=== PATIENT | male | born 1980 | race African-American/Black ===

== ENCOUNTER 2017-05-24 17:07 | Emergency (ER) | payer BC ==
[2017-05-24] MEDS ORDERED: Clindamycin CAP* 150 MG PO ONE (17:30)
--- NOTE | 2017-05-24 17:35 | ED ---
Throat Pain/Nasal Congestion - HPI Summary HPI Summary: 36M presents with swelling to left jaw for 5 days. He denies any pain. He has broke tooth in the area. He denies any fever, chest pain, SOB, or difficulty swallowing. He does not have a dentist. He has not taken anything for pain. - History of Current Complaint Chief Complaint: EDDentalPain Time Seen by Provider: 05/24/17 17:21 - Allergies/Home Medications Allergies/Adverse Reactions: Allergies Allergy/AdvReac Type Severity Reaction Status Date / Time Amoxicillin Allergy Unknown Verified 05/24/17 17:11 Reaction Details PMH/Surg Hx/FS Hx/Imm Hx Endocrine/Hematology History: Denies: Hx Anticoagulant Therapy Cardiovascular History: Denies: Hx Hypertension Infectious Disease History: Denies: Traveled Outside the [place] in Last 30 Days - Family History Known Family History: Positive: None - No history of cardiac disease or dm - Social History Alcohol Use: Rare Substance Use Type: Reports: None Hx Tobacco Use: No Smoking Status (MU): Unknown if Ever Smoked Review of Systems Negative: Fever Positive: Dental Pain Negative: Chest Pain Negative: Shortness Of Breath All Other Systems Reviewed And Are Negative: Yes Physical Exam Triage Information Reviewed: Yes Vital Signs On Initial Exam: Initial Vitals Temp Pulse Resp BP Pulse Ox 97.9 F 77 16 130/94 97 05/24/17 17:09 05/24/17 17:09 05/24/17 17:09 05/24/17 17:09 05/24/17 17:09 Vital Signs Reviewed: Yes Appearance: Positive: Well-Appearing Skin: Positive: Warm, Dry Head/Face: Positive: Normal Head/Face Inspection Eyes: Positive: Normal, EOMI, LUISA, Conjunctiva Clear ENT: Positive: Normal ENT inspection, Pharynx normal, TMs normal Dental: Positive: Gross Decay/Caries @ - throughout, Abscess @ - left side of lower jaw Respiratory/Lung Sounds: Positive: Clear to Auscultation, Breath Sounds Present Cardiovascular: Positive: Normal, RRR Diagnostics - Vital Signs Vital Signs Temp Pulse Resp BP Pulse Ox 05/24/17 17:09 97.9 F 77 16 130/94 97 - Laboratory Lab Statement: Any lab studies that have been ordered have been reviewed, and results considered in the medical decision making process. EENT Course/Dx - Course Course Of Treatment: 36M presents with swelling to left jaw for 5 days. He denies any pain. He has broke tooth in the area. He denies any fever, chest pain, SOB, or difficulty swallowing. He does not have a dentist. He has not taken anything for pain. on exam has abscess of lower jaw, neg trismis. will place on clindamycin. patient understands and agrees with plan - Differential Diagnoses Differential Diagnoses: Dental Abscess, Dental Caries, Fractured Tooth - Diagnoses Provider Diagnoses: Dental infection Discharge - Discharge Plan Condition: Good Disposition: HOME Prescriptions: Clindamycin CAP* [Cleocin 150 MG CAP*] 450 mg PO TID #87 cap Patient Education Materials: Toothache (ED) Referrals: [facility] [Outside] Additional Instructions: Take antibiotics: 3 tablets three times a day for 10 days Use ibuprofen every 6 hours for pain Avoid hard, crunchy food until seen by dentist Return to ED if develop fever, shortness of breath, chest pain, or any new or worsening symptoms Establish care with primary care physician and dentist as soon as possible
[2017-05-24 18:02] VITALS: BP 123/72
== END 2017-05-24 18:01 | disposition home or self-care (01) ==
LOC: ED 17:07
DX: K08.89 Other specified disorders of teeth and supporting structures (principal); K04.7 Periapical abscess without sinus
CPT/HCPCS: 99282; A9270-GY

== ENCOUNTER 2017-06-17 16:37 | Emergency (ER) | payer BC ==
[2017-06-17 19:39] LABS: Hematocrit 46 % (42-52); Hemoglobin 15.2 g/dl (14.0-18.0); Mean Corpuscular HGB Conc 33 g/dl (31-36); Mean Corpuscular Hemoglobin 29 pg (27-31); Mean Corpuscular Volume 87 fL (80-94); Mean Platelet Volume 8 um3 (7.4-10.4); Red Blood Count 5.24 10^6/ul (4.0-5.4); Red Cell Distribution Width 14 % (10.5-15); White Blood Count 7.2 10^3/ul (3.5-10.8)
[2017-06-17 19:46] LABS: Urine Bilirubin Negative (Negative); Urine Glucose Negative (Negative); Urine Nitrite Negative (Negative)
[2017-06-17 19:56] LABS: Albumin 4.1 g/dL (3.2-5.2); BUN/Creatinine Ratio 12.4 (8-20); C Reactive Protein 2.13 mg/L (< 5.00); Calcium 9.4 mg/dL (8.6-10.3); EGFR African American 124.4 (>60); EGFR Non-African American 96.7 (>60); Globulin 3.5 g/dL (2-4); Potassium 3.7 mmol/L (3.5-5.0); Total Bilirubin 0.5 mg/dL (0.2-1.0); Total Protein 7.6 g/dL (6.4-8.9)
--- NOTE | 2017-06-17 19:58 | RAD ---
INDICATION: 3 days RIGHT posterior rib pain. No preceding injury. COMPARISON: No relevant prior exams available on the [facility] PACS for comparison. TECHNIQUE: Dual energy PA and routine lateral views of the chest were obtained. Three-view RIGHT unilateral rib series. REPORT: Clear lungs and pleural spaces. Negative for pneumothorax. The heart, pulmonary vasculature, and mediastinal contours are unremarkable. No rib fracture or other osseous or soft tissue abnormality to correspond with the lateral inferior coastal margin region of clinical concern based on the metallic skin marker. Unremarkable osseous structures and soft tissue contours. IMPRESSION: No evidence for acute intrathoracic disease. Negative for RIGHT rib fracture.
--- NOTE | 2017-06-17 19:58 | RAD ---
INDICATION: 3 days RIGHT posterior rib pain. No preceding injury. COMPARISON: No relevant prior exams available on the [facility] PACS for comparison. TECHNIQUE: Dual energy PA and routine lateral views of the chest were obtained. Three-view RIGHT unilateral rib series. REPORT: Clear lungs and pleural spaces. Negative for pneumothorax. The heart, pulmonary vasculature, and mediastinal contours are unremarkable. No rib fracture or other osseous or soft tissue abnormality to correspond with the lateral inferior coastal margin region of clinical concern based on the metallic skin marker. Unremarkable osseous structures and soft tissue contours. IMPRESSION: No evidence for acute intrathoracic disease. Negative for RIGHT rib fracture.
--- NOTE | 2017-06-17 20:25 | ED ---
Cedric Campos Benjamin, scribed for Joni Jaramillo MD on 06/17/17 at 1933 . Abdominal Pain/Male - HPI Summary HPI Summary: 36yo male /o right flank pain for 3 days that has been worsening with time. Pain worsens with cough and sneezes. Also reports few episodes of diarrhea, but denies fever or abdominal pain. Pt had recent dental complaint with lymph node and throat swelling, which pt was rxed abx 3 weeks ago. Symptoms are getting better but still present. Pt has an upcoming dental appointment. Denies any injury. - History of Current Complaint Chief Complaint: EDFlankPain Stated Complaint: RT FLANK PAIN Time Seen by Provider: 06/17/17 18:37 Hx Obtained From: Patient Onset/Duration: Sudden Onset, Lasting Days, Still Present Timing: Constant Severity Initially: Moderate Severity Currently: Moderate Pain Intensity: 7 Pain Scale Used: 0-10 Numeric Location: Flank - right upper Radiates: No Character: Dull Aggravating Factor(s): Other: - cough and sneezes Alleviating Factor(s): Nothing Associated Signs And Symptoms: Positive: Diarrhea, Other - dental pain, lymph nodes and throat swelling - Allergies/Home Medications Allergies/Adverse Reactions: Allergies Allergy/AdvReac Type Severity Reaction Status Date / Time Amoxicillin Allergy Unknown Verified 05/24/17 17:11 Reaction Details PMH/Surg Hx/FS Hx/Imm Hx Endocrine/Hematology History: Denies: Hx Anticoagulant Therapy Cardiovascular History: Denies: Hx Hypertension Infectious Disease History: No Infectious Disease History: Denies: Traveled Outside the [place] in Last 30 Days - Family History Known Family History: Positive: None - No history of cardiac disease or dm - Social History Alcohol Use: None Substance Use Type: Reports: None Hx Tobacco Use: No Smoking Status (MU): Never Smoked Tobacco Review of Systems Constitutional: Negative ENT: Negative, Other - swollen lymph nodes Positive: Dental Pain, Sore Throat Cardiovascular: Negative Respiratory: Negative Positive: Diarrhea, Other - right flank pain Genitourinary: Negative Positive: no symptoms reported Musculoskeletal: Negative Skin: Negative Neurological: Negative Psychological: Normal All Other Systems Reviewed And Are Negative: Yes Physical Exam Triage Information Reviewed: Yes Vital Signs On Initial Exam: Initial Vitals Temp Pulse Resp BP Pulse Ox 98.6 F 63 20 121/61 96 06/17/17 16:56 06/17/17 16:56 06/17/17 16:56 06/17/17 16:56 06/17/17 16:56 Vital Signs Reviewed: Yes Appearance: Positive: Well-Appearing, No Pain Distress, Well-Nourished Skin: Positive: Warm, Skin Color Reflects Adequate Perfusion, Dry Head/Face: Positive: Normal Head/Face Inspection Eyes: Positive: EOMI, LUISA ENT: Positive: Normal ENT inspection Neck: Positive: Supple, Nontender Respiratory/Lung Sounds: Positive: Clear to Auscultation, Breath Sounds Present Cardiovascular: Positive: RRR Abdomen Description: Positive: Nontender, Soft Bowel Sounds: Positive: Present Musculoskeletal: Positive: Normal, Pain @ - Tenderness at Right posterior lower ribs. Neurological: Positive: Normal, Sensory/Motor Intact, Alert, Oriented to Person Place, Time Psychiatric: Positive: Affect/Mood Appropriate - Uli Coma Scale Coma Scale Total: 15 Diagnostics - Vital Signs Vital Signs Temp Pulse Resp BP Pulse Ox 06/17/17 18:12 98.5 F 59 16 140/90 98 06/17/17 16:56 98.6 F 63 20 121/61 96 - Laboratory Lab Results: Lab Results 06/17/17 06/17/17 06/17/17 Range/Units 19:30 19:30 19:30 WBC 7.2 (3.5-10.8) 10^3/ul RBC 5.24 (4.0-5.4) 10^6/ul Hgb 15.2 (14.0-18.0) g/dl Hct 46 (42-52) % MCV 87 (80-94) fL MCH 29 (27-31) pg MCHC 33 (31-36) g/dl RDW 14 (10.5-15) % Plt Count 239 (150-450) 10^3/ul MPV 8 (7.4-10.4) um3 Neut % (Auto) 58.1 (38-83) % Lymph % (Auto) 30.4 (25-47) % Tyrrell % (Auto) 8.1 (1-9) % Eos % (Auto) 2.2 (0-6) % Baso % (Auto) 1.2 (0-2) % Absolute Neuts (auto) 4.2 (1.5-7.7) 10^3/ul Absolute Lymphs (auto) 2.2 (1.0-4.8) 10^3/ul Absolute Monos (auto) 0.6 (0-0.8) 10^3/ul Absolute Eos (auto) 0.2 (0-0.6) 10^3/ul Absolute Basos (auto) 0.1 (0-0.2) 10^3/ul Absolute Nucleated RBC 0.02 10^3/ul Nucleated RBC % 0.3 APTT 28.5 (26.0-36.3) seconds D-Dimer, Quantitative < 200 (Less Than 230) ng/mL Sodium (133-145) mmol/L Potassium (3.5-5.0) mmol/L Chloride (101-111) mmol/L Carbon Dioxide (22-32) mmol/L Anion Gap (2-11) mmol/L BUN (6-24) mg/dL Creatinine (0.67-1.17) mg/dL Est GFR ( Amer) (>60) Est GFR (Non-Af Amer) (>60) BUN/Creatinine Ratio (8-20) Glucose (70-100) mg/dL Lactic Acid (0.5-2.0) mmol/L Calcium (8.6-10.3) mg/dL Total Bilirubin (0.2-1.0) mg/dL AST (13-39) U/L ALT (7-52) U/L Alkaline Phosphatase (34-104) U/L C-Reactive Protein (< 5.00) mg/L Total Protein (6.4-8.9) g/dL Albumin (3.2-5.2) g/dL Globulin (2-4) g/dL Albumin/Globulin Ratio (1-3) Lipase (11.0-82.0) U/L Urine Color Yellow Urine Appearance Clear Urine pH 5.0 (5-9) Ur Specific Perry 1.021 (1.010-1.030) Urine Protein Negative (Negative) Urine Ketones Negative (Negative) Urine Blood Negative (Negative) Urine Nitrate Negative (Negative) Urine Bilirubin Negative (Negative) Urine Urobilinogen Negative (Negative) Ur Leukocyte Esterase Negative (Negative) Urine Glucose Negative (Negative) 06/17/17 06/17/17 Range/Units 19:30 19:30 WBC (3.5-10.8) 10^3/ul RBC (4.0-5.4) 10^6/ul Hgb (14.0-18.0) g/dl Hct (42-52) % MCV (80-94) fL MCH (27-31) pg MCHC (31-36) g/dl RDW (10.5-15) % Plt Count (150-450) 10^3/ul MPV (7.4-10.4) um3 Neut % (Auto) (38-83) % Lymph % (Auto) (25-47) % Tyrrell % (Auto) (1-9) % Eos % (Auto) (0-6) % Baso % (Auto) (0-2) % Absolute Neuts (auto) (1.5-7.7) 10^3/ul Absolute Lymphs (auto) (1.0-4.8) 10^3/ul Absolute Monos (auto) (0-0.8) 10^3/ul Absolute Eos (auto) (0-0.6) 10^3/ul Absolute Basos (auto) (0-0.2) 10^3/ul Absolute Nucleated RBC 10^3/ul Nucleated RBC % APTT (26.0-36.3) seconds D-Dimer, Quantitative (Less Than 230) ng/mL Sodium 139 (133-145) mmol/L Potassium 3.7 (3.5-5.0) mmol/L Chloride 105 (101-111) mmol/L Carbon Dioxide 31 (22-32) mmol/L Anion Gap 3 (2-11) mmol/L BUN 11 (6-24) mg/dL Creatinine 0.89 (0.67-1.17) mg/dL Est GFR ( Amer) 124.4 (>60) Est GFR (Non-Af Amer) 96.7 (>60) BUN/Creatinine Ratio 12.4 (8-20) Glucose 92 (70-100) mg/dL Lactic Acid 1.2 (0.5-2.0) mmol/L Calcium 9.4 (8.6-10.3) mg/dL Total Bilirubin 0.50 (0.2-1.0) mg/dL AST 21 (13-39) U/L ALT 26 (7-52) U/L Alkaline Phosphatase 65 (34-104) U/L C-Reactive Protein 2.13 (< 5.00) mg/L Total Protein 7.6 (6.4-8.9) g/dL Albumin 4.1 (3.2-5.2) g/dL Globulin 3.5 (2-4) g/dL Albumin/Globulin Ratio 1.2 (1-3) Lipase 20 (11.0-82.0) U/L Urine Color Urine Appearance Urine pH (5-9) Ur Specific Perry (1.010-1.030) Urine Protein (Negative) Urine Ketones (Negative) Urine Blood (Negative) Urine Nitrate (Negative) Urine Bilirubin (Negative) Urine Urobilinogen (Negative) Ur Leukocyte Esterase (Negative) Urine Glucose (Negative) Result Diagrams: 06/17/17 19:30 06/17/17 19:30 Lab Statement: Any lab studies that have been ordered have been reviewed, and results considered in the medical decision making process. Abdominal Pain Fem Course/Dx - Course Course Of Treatment: NO CRITICAL CARE TIME. PAIN DECREASED IN ED. DISCUSSED RESULTS WITH PATIENT. NO RASH. DISCHARGE HOME STABLE; F/U WITH PMD; WILL RETURN IF WORSE. - Diagnoses Provider Diagnoses: Right flank pain, Right-sided chest pain Discharge - Discharge Plan Condition: Stable Disposition: HOME Patient Education Materials: Flank Pain (ED), Noncardiac Chest Pain (ED) Referrals: No Primary Care Phys,NOPCP [Primary Care Provider] - Additional Instructions: FOLLOW UP WITH YOUR DOCTOR. RETURN TO THE EMERGENCY DEPARTMENT FOR ANY WORSENING OF YOUR CONDITION; PAIN, RASH, FEVER, SHORTNESS OF BREATH, YOU FEEL ILL OR QUESTIONS OR CONCERNS. The documentation as recorded by the Cderic reynolds Benjamin accurately reflects the service I personally performed and the decisions made by me, Joni Jaramillo MD.
--- NOTE | 2017-06-17 20:34 | ED ---
Cedric Campos Benjamin, scribed for Joni Jaramillo MD on 06/17/17 at 2031 . Progress - Progress Note Progress Note: Addendum for Dr. Dawson's chart: CXR: No acute findings. Negative for rib fractures. Right Ribs XR: No acute findings. Negative for rib fractures. Course/Dx - Course Course Of Treatment: NO CRITICAL CARE TIME. PAIN DECREASED IN ED. DISCUSSED RESULTS WITH PATIENT. NO RASH. DISCHARGE HOME STABLE; F/U WITH PMD; WILL RETURN IF WORSE. - Diagnoses Provider Diagnoses: Right flank pain, Right-sided chest pain The documentation as recorded by the Cedric reynolds Benjamin accurately reflects the service I personally performed and the decisions made by , Joni Jaramillo MD.
[2017-06-17 20:43] VITALS: BP 120/79
== END 2017-06-17 20:48 | disposition home or self-care (01) ==
LOC: ED 16:37
DX: R07.9 Chest pain, unspecified (principal); R07.81 Pleurodynia; Z88.0 Allergy status to penicillin
CPT/HCPCS: 36415; 71020; 80053; 81003; 83605; 83690; 85025; 85379; 85730; 86140; 99282

== ENCOUNTER 2018-03-14 00:36 | Emergency (ER) | payer BC ==
--- NOTE | 2018-03-14 03:09 | ED ---
Adult Trauma - HPI Summary HPI Summary: C/O LEFT ANKLE PAIN S/P BASKETBALL INJURY TONIGHT. PT HEARD "POP". ALSO STATES SAME ANKLE INJURED 2 WEEKS AGO WITH MEDICAL EVAL. DENIES LOSS OF SENSATION OR FUNCTION. AMBULATES EASILY. - History of Current Complaint Chief Complaint: EDExtremityLower Stated Complaint: LT ANKLE INJURY Time Seen by Provider: 03/14/18 01:41 Hx Obtained From: Patient Mechanism of Injury: Fall Loss of Consciousness: no loss of consciousness Onset/Duration: Started Hours Ago Onset of Pain: Immediate Onset Severity: Moderate Current Severity: Moderate Pain Intensity: 5 Pain Scale Used: 0-10 Numeric Location: Extremities Character: Aching Aggravating Factor(s): Movement Alleviating Factor(s): Nothing Associated Signs & Symptoms: Positive: Negative Related History: Similar Episode - Allergy/Home Medications Allergies/Adverse Reactions: Allergies Allergy/AdvReac Type Severity Reaction Status Date / Time amoxicillin Allergy Unknown Verified 03/14/18 00:40 Reaction Details Home Medications: Home Medications NK [No Home Medications Reported] 03/14/18 [History Confirmed 03/14/18] PMH/Surg Hx/FS Hx/Imm Hx Endocrine/Hematology History: Denies: Hx Anticoagulant Therapy Cardiovascular History: Denies: Hx Hypertension Infectious Disease History: No Infectious Disease History: Denies: Traveled Outside the [place] in Last 30 Days - Family History Known Family History: Positive: None - No history of cardiac disease or dm - Social History Alcohol Use: None Substance Use Type: Reports: None Hx Tobacco Use: No Smoking Status (MU): Never Smoked Tobacco Review of Systems Constitutional: Negative Eyes: Negative ENT: Negative Cardiovascular: Negative Respiratory: Negative Gastrointestinal: Negative Genitourinary: Negative Positive: Arthralgia Skin: Negative Neurological: Negative Psychological: Normal All Other Systems Reviewed And Are Negative: Yes Physical Exam - Summary Physical Exam Summary: LEFT ANKLE: NO ECCHYMOSIS, ERYTHEMA, DEFORMITY, SWELLING EXTRA WARMTH NOTED. TTP ONLY OVER LATERAL MALLEOLUS. AMBULATES EASILY. PMS INTACT. Triage Information Reviewed: Yes Vital Signs On Initial Exam: Initial Vitals Temp Pulse Resp BP Pulse Ox 97.7 F 83 15 132/96 96 03/14/18 00:37 03/14/18 00:37 03/14/18 00:37 03/14/18 00:37 03/14/18 00:37 Vital Signs Reviewed: Yes Appearance: Positive: Well-Appearing Skin: Positive: Warm Head/Face: Positive: Normal Head/Face Inspection Eyes: Positive: Normal Neck: Positive: Supple Respiratory/Lung Sounds: Positive: Clear to Auscultation Cardiovascular: Positive: Normal Abdomen Description: Positive: Nontender Musculoskeletal: Positive: Normal Neurological: Positive: Normal AVPU Assessment: Alert - [place] Coma Scale Best Eye Response: 4 - Spontaneous Best Motor Response: 6 - Obeys Commands Best Verbal Response: 5 - Oriented Coma Scale Total: 15 Diagnostics - Vital Signs Vital Signs Temp Pulse Resp BP Pulse Ox 03/14/18 00:37 97.7 F 83 15 132/96 96 - Laboratory Lab Statement: Any lab studies that have been ordered have been reviewed, and results considered in the medical decision making process. Adult Trauma Course/Dx - Course Course Of Treatment: BENIGN PHYSCIAL EXAM. POSSIBLE BONE ABNORMALITY ON ANKLE XRAY. PT WILL BE PLACED IN ANKLE BRACE AND ADVISED TO FOLLOW UP WITH ORTHOPEDICS. - Diagnoses Provider Diagnoses: Ankle sprain Discharge - Sign-Out/Discharge Documenting (check all that apply): Discharge - Discharge Plan Condition: Stable Disposition: HOME Patient Education Materials: Ankle Sprain (ED), Ankle Stirrup Splint (ED) Referrals: No Primary Care Phys,NOPCP [Primary Care Provider] - Emmanuel Clemetne MD [Medical Doctor] - Additional Instructions: FOLLOW UP WITH ORTHOPEDICS DR CLEMENTE BEFORE ANY FURTHER PHYSICAL ACTIVITY. RETURN TO ED FOR ANY NEW OR WORSENING SYMPTOMS. - Billing Disposition and Condition Condition: STABLE Disposition: HOME
[2018-03-14 03:51] VITALS: BP 126/99
--- NOTE | 2018-03-14 10:05 | RAD ---
Indication: Left ankle injury. 3 views of the left ankle are reviewed. Ankle mortise is intact. There is no fracture or dislocation no other bone or joint abnormality is identified. IMPRESSION: No fracture of the left ankle is noted.
== END 2018-03-14 03:52 | disposition home or self-care (01) ==
LOC: ED 00:36
DX: S93.402A Sprain of unspecified ligament of left ankle, initial encounter (principal); X58.XXXA Exposure to other specified factors, initial encounter; Y93.67 Activity, basketball; Y92.310 Basketball court as the place of occurrence of the external cause; Z88.0 Allergy status to penicillin
CPT/HCPCS: 99282

== ENCOUNTER 2018-09-06 00:14 | Emergency (ER) | payer BC ==
[2018-09-06 03:46] LABS: ABS Basophils 0.1 10^3/ul (0-0.2); ABS Eosinophils 0.2 10^3/ul (0-0.6); ABS Lymphocytes 2.5 10^3/ul (1.0-4.8); ABS Monocytes 0.8 10^3/ul (0-0.8); ABS Neutrophils 5.1 10^3/ul (1.5-7.7); ABS Nucleated RBC 0 10^3/ul; Eosinophil % 1.8 % (0-6); Hematocrit 46 % (42-52); Hemoglobin 15.7 g/dl (14.0-18.0); Lymphocyte % 28.8 % (25-47); Mean Corpuscular HGB Conc 34 g/dl (31-36); Mean Corpuscular Hemoglobin 29 pg (27-31); Mean Corpuscular Volume 85 fL (80-94); Mean Platelet Volume 7.8 um3 (7.4-10.4); Nucleated Red Blood Cells % 0.2; Platelet Count 276 10^3/ul (150-450); Red Blood Count 5.45 10^6/ul (4.00-5.40); Red Cell Distribution Width 13 % (10.5-15); White Blood Count 8.6 10^3/ul (3.5-10.8)
[2018-09-06 03:58] LABS: INR 1.02 (0.77-1.02)
[2018-09-06 04:04] LABS: EGFR Non-African American 71.6 (>60)
--- NOTE | 2018-09-06 05:05 | ED ---
HPI Chest Pain - HPI Summary HPI Summary: Pt is 37 y/o M who presents to ED c/o chest pain since 1 week ago. He describes the pain as a pressure that is intermittent. He was prompted to come the the ED today because of the dysphagia he noticed today, though he was still able to eat. Denies nausea or having any pain right now. - History of Current Complaint Chief Complaint: EDGeneral Time Seen by Provider: 09/06/18 00:30 Hx Obtained From: Patient Onset/Duration: Started Days Ago, Still Present Timing: Intermittent Current Severity: None Pain Intensity: 0 Pain Scale Used: 0-10 Numeric Character: Pressure/Squeezing Associated Signs and Symptoms: Positive: Chest Pain. Negative: Nausea - Allergy/Home Medications Allergies/Adverse Reactions: Allergies Allergy/AdvReac Type Severity Reaction Status Date / Time amoxicillin Allergy See Comment Verified 09/06/18 00:21 watermelon Allergy TONGUE Verified 09/06/18 00:21 SWOLLEN PMH/Surg Hx/FS Hx/Imm Hx Endocrine/Hematology History: Denies: Hx Anticoagulant Therapy, Hx Diabetes Cardiovascular History: Denies: Hx Hypertension, Hx Pacemaker/ICD History: Denies: Hx Renal Disease Sensory History: Denies: Hx Hearing Aid Psychiatric History: Denies: Hx Panic Disorder Infectious Disease History: No Infectious Disease History: Denies: Traveled Outside the [place] in Last 30 Days - Family History Known Family History: Negative: Cardiac Disease - Social History Alcohol Use: None Substance Use Type: Reports: None Hx Tobacco Use: No Smoking Status (MU): Never Smoked Tobacco Review of Systems Positive: Other - dysphagia Positive: Chest Pain Negative: Nausea All Other Systems Reviewed And Are Negative: Yes Physical Exam - Summary Physical Exam Summary: VITAL SIGNS: Reviewed. GENERAL: Patient is a well-developed and nourished male who is lying comfortable in the stretcher. Patient is not in any acute respiratory distress. HEAD AND FACE: No signs of trauma. No ecchymosis, hematomas or skull depressions. No sinus tenderness. EYES: PERRLA, EOMI x 2, No injected conjunctiva, no nystagmus. EARS: Hearing grossly intact. Ear canals and tympanic membranes are within normal limits. MOUTH: Oropharynx within normal limits. NECK: Supple, trachea is midline, no adenopathy, no JVD, no carotid bruit, no c- spine tenderness, neck with full ROM. CHEST: Symmetric, no tenderness at palpation LUNGS: Clear to auscultation bilaterally. No wheezing or crackles. CVS: Regular rate and rhythm, S1 and S2 present, no murmurs or gallops appreciated ABDOMEN: Soft, non-tender. No signs of distention. No rebound no guarding, and no masses palpated. Bowel sounds are normal. EXTREMITIES: FROM in all major joints, no edema, no cyanosis or clubbing. NEURO: Alert and oriented x 3. No acute neurological deficits. Speech is normal and follows commands. SKIN: Dry and warm Triage Information Reviewed: Yes Vital Signs On Initial Exam: Initial Vitals Temp Pulse Resp BP Pulse Ox 98.8 F 88 16 125/94 99 09/06/18 00:15 09/06/18 00:15 09/06/18 00:15 09/06/18 00:15 09/06/18 00:15 Vital Signs Reviewed: Yes Diagnostics - Vital Signs Vital Signs Temp Pulse Resp BP Pulse Ox 09/06/18 00:15 98.8 F 88 16 125/94 99 - Laboratory Lab Results: Lab Results 09/06/18 09/06/18 09/06/18 Range/Units 03:35 03:35 03:35 WBC 8.6 (3.5-10.8) 10^3/ul RBC 5.45 H (4.00-5.40) 10^6/ul Hgb 15.7 (14.0-18.0) g/dl Hct 46 (42-52) % MCV 85 (80-94) fL MCH 29 (27-31) pg MCHC 34 (31-36) g/dl RDW 13 (10.5-15) % Plt Count 276 (150-450) 10^3/ul MPV 7.8 (7.4-10.4) um3 Neut % (Auto) 58.9 (38-83) % Lymph % (Auto) 28.8 (25-47) % [place] % (Auto) 9.6 H (0-7) % Eos % (Auto) 1.8 (0-6) % Baso % (Auto) 0.9 (0-2) % Absolute Neuts (auto) 5.1 (1.5-7.7) 10^3/ul Absolute Lymphs (auto) 2.5 (1.0-4.8) 10^3/ul Absolute Monos (auto) 0.8 (0-0.8) 10^3/ul Absolute Eos (auto) 0.2 (0-0.6) 10^3/ul Absolute Basos (auto) 0.1 (0-0.2) 10^3/ul Absolute Nucleated RBC 0 10^3/ul Nucleated RBC % 0.2 INR (Anticoag Therapy) 1.02 (0.77-1.02) APTT 29.3 (26.0-36.3) seconds Sodium (135-145) mmol/L Potassium (3.5-5.0) mmol/L Chloride (101-111) mmol/L Carbon Dioxide (22-32) mmol/L Anion Gap (2-11) mmol/L BUN (6-24) mg/dL Creatinine (0.67-1.17) mg/dL Est GFR ( Amer) (>60) Est GFR (Non-Af Amer) (>60) BUN/Creatinine Ratio (8-20) Glucose (70-100) mg/dL Lactic Acid (0.5-2.0) mmol/L Calcium (8.6-10.3) mg/dL Magnesium (1.9-2.7) mg/dL Total Bilirubin (0.2-1.0) mg/dL AST (13-39) U/L ALT (7-52) U/L Alkaline Phosphatase (34-104) U/L Total Creatine Kinase (10-223) U/L Troponin I (<0.04) ng/mL B-Natriuretic Peptide 13 ( - 100) pg/mL Total Protein (6.4-8.9) g/dL Albumin (3.2-5.2) g/dL Globulin (2-4) g/dL Albumin/Globulin Ratio (1-3) 09/06/18 09/06/18 Range/Units 03:35 03:35 WBC (3.5-10.8) 10^3/ul RBC (4.00-5.40) 10^6/ul Hgb (14.0-18.0) g/dl Hct (42-52) % MCV (80-94) fL MCH (27-31) pg MCHC (31-36) g/dl RDW (10.5-15) % Plt Count (150-450) 10^3/ul MPV (7.4-10.4) um3 Neut % (Auto) (38-83) % Lymph % (Auto) (25-47) % [place] % (Auto) (0-7) % Eos % (Auto) (0-6) % Baso % (Auto) (0-2) % Absolute Neuts (auto) (1.5-7.7) 10^3/ul Absolute Lymphs (auto) (1.0-4.8) 10^3/ul Absolute Monos (auto) (0-0.8) 10^3/ul Absolute Eos (auto) (0-0.6) 10^3/ul Absolute Basos (auto) (0-0.2) 10^3/ul Absolute Nucleated RBC 10^3/ul Nucleated RBC % INR (Anticoag Therapy) (0.77-1.02) APTT (26.0-36.3) seconds Sodium 140 (135-145) mmol/L Potassium 3.6 (3.5-5.0) mmol/L Chloride 104 (101-111) mmol/L Carbon Dioxide 29 (22-32) mmol/L Anion Gap 7 (2-11) mmol/L BUN 13 (6-24) mg/dL Creatinine 1.15 (0.67-1.17) mg/dL Est GFR ( Amer) 86.6 (>60) Est GFR (Non-Af Amer) 71.6 (>60) BUN/Creatinine Ratio 11.3 (8-20) Glucose 96 (70-100) mg/dL Lactic Acid 0.8 (0.5-2.0) mmol/L Calcium 9.4 (8.6-10.3) mg/dL Magnesium 1.9 (1.9-2.7) mg/dL Total Bilirubin 0.60 (0.2-1.0) mg/dL AST 23 (13-39) U/L ALT 30 (7-52) U/L Alkaline Phosphatase 80 (34-104) U/L Total Creatine Kinase 221 (10-223) U/L Troponin I 0.02 (<0.04) ng/mL B-Natriuretic Peptide ( - 100) pg/mL Total Protein 7.1 (6.4-8.9) g/dL Albumin 4.1 (3.2-5.2) g/dL Globulin 3.0 (2-4) g/dL Albumin/Globulin Ratio 1.4 (1-3) Result Diagrams: 09/06/18 03:35 09/06/18 03:35 Lab Statement: Any lab studies that have been ordered have been reviewed, and results considered in the medical decision making process. - Radiology CXR Radiology Interpretation Completed By: ED Physician - No acute processes, pending official report. - EKG 00:21 Cardiac Rate: NL - 72 bpm EKG Rhythm: Sinus Rhythm EKG Interpretation: Normal axis. Normal interval. No ischemic changes. Chest Pain Course/Dx - Course Course Of Treatment: Pt is 37 y/o M who presents to ED c/o chest pain since 1 week ago. He describes the pain as a pressure that is intermittent. He was prompted to come the the ED today because of the dysphagia he noticed today, though he was still able to eat. Denies nausea or having any pain right now. Physical exam was normal. EKG taken at 00:21 shows sinus rhythm at 72 bpm with normal axis, normal interval, and no ischemic changes. Second troponin was negative. Pt has no risk factors for coronary artery disease. Pt will be discharged home and told to follow up with coding advisor. - Diagnoses Provider Diagnoses: Chest pain Discharge - Sign-Out/Discharge Documenting (check all that apply): Patient Departure - Discharge - Discharge Plan Condition: Stable Disposition: HOME Prescriptions: Pantoprazole TAB (NF) [Protonix TAB (NF)] 40 mg PO DAILY #30 tab Patient Education Materials: Chest Pain (ED) Referrals: Torin Mccabe MD [Medical Doctor] - Additional Instructions: RETURN TO THE EMERGENCY DEPARTMENT FOR CHANGING OR WORSENING SYMPTOMS. - Billing Disposition and Condition Condition: STABLE Disposition: Home - Attestation Statements Document Initiated by Scribe: Yes Documenting Scribe: Cynthia Mckeon Provider For Whom Cathie is Documenting (Include Credential): Dr. Francine Joaquin MD Scribe Attestation: Cynthia Campos, scribed for Dr. Francine Joaquin MD on 09/11/18 at 0338. Scribe Documentation Reviewed: Yes Provider Attestation: The documentation as recorded by the scribCynthia vasquez accurately reflects the service I personally performed and the decisions made by me, Dr. Francine Joaquin MD
[2018-09-06 06:59] VITALS: BP 124/77
--- NOTE | 2018-09-06 08:38 | RAD ---
Indication: Chest pain. Single frontal view of the chest performed at 0111 hours was reviewed. Comparison is made with previous exam dated June 17, 2017. No mediastinal shift is noted. Heart is of normal size and configuration. Lung candelaria appear clear. IMPRESSION: NO ACTIVE CARDIOPULMONARY DISEASE IS NOTED. R0
== END 2018-09-06 07:00 | disposition home or self-care (01) ==
LOC: ED 00:14
DX: R07.89 Other chest pain (principal); R13.10 Dysphagia, unspecified; Z88.0 Allergy status to penicillin; Z91.018 Allergy to other foods
CPT/HCPCS: 36415; 71045; 80053; 82550; 83605; 83735; 83880; 84484; 85025; 85610; 85730; 93005; 99283

== ENCOUNTER 2019-08-11 19:11 | Emergency (ER) | payer SELFPAY ==
--- NOTE | 2019-08-11 19:39 | ED ---
Throat Pain/Nasal Congestion - HPI Summary HPI Summary: 38 year old M presenting to [facility] complains of intermittent sore throat and throat pain since 3-4 weeks ago, worsening in the last 2 days. Patient states he feels a painful lump when he swallows. Patient states he has been short of breath since 2 days ago. Patient denies cough, fever, chills, difficulty swallowing, change in voice, GI symptoms (n/v/d), rashes. Patient states he has problems with his tonsils, and needs to have them removed but hasnt yet. The patient rates the pain 4/10 in severity. Symptoms aggravated by swallowing. Symptoms alleviated by nothing. Denies PMHx. Denies surgical hx. Denies smoking , drinking, and using drugs. 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 Medications reviewed. Allergies noted. - History of Current Complaint Chief Complaint: EDThroatPain Time Seen by Provider: 08/11/19 19:24 Hx Obtained From: Patient Onset/Duration: Lasting Weeks - 3-4, Still Present, Worse Since Severity: Moderate - 4/10 - Allergies/Home Medications Allergies/Adverse Reactions: Allergies Allergy/AdvReac Type Severity Reaction Status Date / Time amoxicillin Allergy See Comment Verified 09/06/18 00:21 watermelon Allergy TONGUE Verified 09/06/18 00:21 SWOLLEN PMH/Surg Hx/FS Hx/Imm Hx Endocrine/Hematology History: Denies: Hx Anticoagulant Therapy, Hx Diabetes Cardiovascular History: Denies: Hx Hypertension, Hx Pacemaker/ICD History: Denies: Hx Renal Disease Sensory History: Denies: Hx Hearing Aid Psychiatric History: Denies: Hx Panic Disorder - Surgical History Surgery Procedure, Year, and Place: none Infectious Disease History: No Infectious Disease History: Denies: Traveled Outside the [place] in Last 30 Days - Family History Known Family History: Negative: Cardiac Disease - Social History Alcohol Use: None Hx Substance Use: No Substance Use Type: Reports: None Hx Tobacco Use: No Smoking Status (MU): Never Smoked Tobacco Review of Systems Negative: Fever, Chills ENT: Negative - difficulty swallowing, change in voice Positive: Sore Throat, Other - throat pain, painful lump Positive: Shortness Of Breath. Negative: Cough Negative: Vomiting, Diarrhea, Nausea Negative: Rash All Other Systems Reviewed And Are Negative: Yes Physical Exam - Summary Physical Exam Summary: Constitutional: Well-developed, Well-nourished, Alert. (-) Distressed Skin: Warm, Dry HENT: Tonsils are swollen bilaterally with a little bit mild purulent discharge , no masses palpated Eyes: Conjunctiva normal Neck: Musculoskeletal ROM normal neck. (-) JVD, (-) Stridor, (-) Tracheal deviation Cardio: Rhythm regular, rate normal, Heart sounds normal; Intact distal pulses; The pedal pulses are 2+ and symmetric. Radial pulses are 2+ and symmetric. (-) Murmur Pulmonary/Chest wall: Effort normal. (-) Respiratory distress, (-) Wheezes, (-) Rales Abd: Soft, (-) tenderness, (-) Distension, (-) Guarding, (-) Rebound Musculoskeletal: (-) Edema Lymph: (-) Cervical adenopathy Neuro: Alert, Oriented x3 Psych: Mood and affect Normal Triage Information Reviewed: Yes Vital Signs On Initial Exam: Initial Vitals Temp Pulse Resp BP Pulse Ox 99.1 F 67 18 153/91 97 08/11/19 19:19 08/11/19 19:19 08/11/19 19:19 08/11/19 19:19 08/11/19 19:19 Vital Signs Reviewed: Yes Diagnostics - Vital Signs Vital Signs Temp Pulse Resp BP Pulse Ox 08/11/19 19:19 99.1 F 67 18 153/91 97 - Laboratory Result Diagrams: 08/11/19 20:00 08/11/19 20:00 Lab Statement: Any lab studies that have been ordered have been reviewed, and results considered in the medical decision making process. - CT CT Neck CT Interpretation Completed By: Radiologist Summary of CT Findings: Normal post contrast neck CT. ED physician has reviewed this report. EENT Course/Dx - Course Course Of Treatment: Patient is here with swelling and pain in his right throat. Patient's had symptoms for the past 4 weeks progressively worse. Patient had no objective findings here but was concerned. Patient was offered to follow up with his primary care doctor but did not think he would do that. It work up was performed which included normal blood tests and negative CT scan for any abnormality. - Diagnoses Provider Diagnoses: Throat pain Discharge ED - Sign-Out/Discharge Documenting (check all that apply): Patient Departure - Discharge Patient Received Moderate/Deep Sedation with Procedure: No - Discharge Plan Condition: Stable Disposition: HOME Prescriptions: Cephalexin CAP* [Keflex CAP*] 500 mg PO BID 10 Days #20 cap Referrals: [facility] [Outside] - 1 Day Additional Instructions: Please follow up with [facility]. Please make all follow-ups in 1- 3 days unless I advise you otherwise. PLEASE RETURN TO EMERGENCY DEPARTMENT FOR ANY NEW OR WORSENING SYMPTOMS. - Billing Disposition and Condition Condition: STABLE Disposition: Home - Attestation Statements Document Initiated by Huangibe: Yes Documenting Scribe: Caroline Mejia Provider For Whom Cathie is Documenting (Include Credential): Luis Christianson MD Scribe Attestation: Caroline Campos, scribed for Luis Christianson MD on 08/12/19 at 0342. Scribe Documentation Reviewed: Yes Provider Attestation: The documentation as recorded by the Caroline reynolds accurately reflects the service I personally performed and the decisions made by me, Luis Christianson MD Status of Scribe Document: Viewed
[2019-08-11 20:05] LABS: ABS Basophils 0.1 10^3/ul (0-0.2); ABS Eosinophils 0.2 10^3/ul (0-0.6); ABS Lymphocytes 2.5 10^3/ul (1.0-4.8); ABS Monocytes 0.6 10^3/ul (0-0.8); ABS Neutrophils 3.9 10^3/ul (1.5-7.7); Eosinophil % 2.3 %; Hematocrit 44 % (42-52); Hemoglobin 14.9 g/dL (14.0-18.0); Lymphocyte % 34.2 %; Mean Corpuscular HGB Conc 34 g/dL (31-36); Mean Corpuscular Hemoglobin 30 pg (27-31); Mean Corpuscular Volume 87 fL (80-94); Mean Platelet Volume 7.7 fL (7.4-10.4); Nucleated Red Blood Cells % 0.1; Platelet Count 264 10^3/uL (150-450); Red Cell Distribution Width 14 % (10-15); White Blood Count 7.2 10^3/uL (3.5-10.8)
[2019-08-11 20:23] LABS: Calcium 9.2 mg/dL (8.6-10.3); EGFR Non-African American 90.9 (>60); Potassium 3.2 mmol/L (3.5-5.0)
[2019-08-11] MEDS ORDERED: Iohexol 300* (CONTRAST) 10 ML SDV IV ONE (20:54)
[2019-08-11 22:54] VITALS: BP 132/90
== END 2019-08-11 22:45 | disposition home or self-care (01) ==
LOC: ED 19:11
DX: J02.9 Acute pharyngitis, unspecified (principal); R06.02 Shortness of breath; Z88.0 Allergy status to penicillin
CPT/HCPCS: 36415; 70491; 80048; 85025; 99282; Q9967